=== PATIENT | male | born 1945 | race Caucasian/White ===

== ENCOUNTER 2019-12-28 18:15 | Inpatient (IN) | payer MEDICAID, SELFPAY ==
[2019-12-28] VITALS (14 sets, daily range): BP systolic 113–131; BP diastolic 65–75; PULSE 75–94; RESP 10–25; TEMP 35.9–36.9; O2SAT 90–97; BMI 22.1
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
--- NOTE | 2019-12-28 21:04 | CTR_ITS ---
PROCEDURE INFORMATION: Exam: CT Abdomen And Pelvis Without Contrast Exam date and time: 12/28/2019 1:00 AM Age: 74 years old Clinical indication: Abdominal pain; Prior surgery; Surgery type: Port a cath; Patient HX: C/O lower abd pain; Additional info: Lower abdominal pain TECHNIQUE: Imaging protocol: Computed tomography of the abdomen and pelvis without contrast. Radiation optimization: All CT scans at this facility use at least one of these dose optimization techniques: automated exposure control; mA and/or kV adjustment per patient size (includes targeted exams where dose is matched to clinical indication); or iterative reconstruction. COMPARISON: No relevant prior studies available. RADIATION DOSE METRICS: Total DLP (mGy-cm): 792.35 FINDINGS: Lungs: There is subsegmental atelectasis in the lung bases. Heart: There is mild cardiac enlargement. Mediastinal space: There is a small sliding-type hiatal hernia. Liver: The liver is normal. Gallbladder and bile ducts: The gallbladder is normal. There is no biliary dilation. Pancreas: There is mild atrophy of the pancreas. Spleen: The spleen is mildly enlarged. Adrenals: The adrenal glands are unremarkable. Kidneys and ureters: Bilateral renal vascular calcification. No intrarenal stones. No hydronephrosis or ureteral dilation. Stomach and bowel: The stomach is unremarkable. The small bowel is nondilated. There is moderate distal descending and sigmoid colonic diverticulosis without evidence of diverticulitis. Appendix: The appendix is normal. Intraperitoneal space: There is no free air or significant intraperitoneal free fluid. Vasculature: There is severe aortic atherosclerotic disease. Lymph nodes: There is no lymphadenopathy in the retroperitoneum, mesentery, pelvis or inguinal regions. Urinary bladder: The urinary bladder is distended and thin walled. Reproductive: The prostate and seminal vesicles are unremarkable. Bones/joints: There is moderate degenerative disease in the lumbar spine. The pelvis and hips are intact. Soft tissues: The abdominal wall is intact. CT/CT abdomen pelvis wo con [id number] IMPRESSION: 1. No acute findings. 2. Incidental findings above. Radiation Dose CTDIVOL = (mGy): DLP = 792.35 (mGy-cm)
[2019-12-28] MEDS: pantoprazole 40 mg SDV IVP (21:23)
[2019-12-28] MEDS: sodium chloride 0.9% (100 ml) 100 ML 10 ML (21:25)
--- NOTE | 2019-12-28 21:42 | PC.PHAR ---
Pharmacokinetic dosing service Date: 12/28/19 Time: 2141 Objective: Patient: Jhon Parson Floor: ICU-5 Age: 74 yo Serum creatinine: 1.82 mg/dL Height: 65.0 Inches Weight (kg): 60.509 Diagnosis: Relevant medical/social history: Cultures and sensitivities: Other labs: Assessment: IBW (kg): 61.50 Dosing wt(kg): 60.509 Estimated Creatinine clearance (ml/min): 31.4 CRCL method: Cockcroft and Gault using ibw(default). Drug selected: Vancomycin Loading dose (mg): 0 Vd (liters): 54.5 (factor used: 0.9 L/kg) Pablito (hr-1): 0.030 Half life (hrs): 23.10 Recommended dose: 1000 mg Interval: 24 hrs Infusion time (hrs): 1.5 Predicted peak (mcg/mL): 35.0 Predicted trough (mcg/mL): 17.82 Total body weight is being used for vancomycin dosing. Renal function is stable [ ] /unstable [ ] Recommendations: Give Vancomycin 1000 mg q 24 hrs with an expected Cpeak of 35.0 mcg/ml and an expected Ctrough of 17.82 mcg/ml Renal dosing of other antibiotics (review renal dosing of other medications and list guidelines here): Thank you for the consult, will continue to follow. Signature: Susannah Chandra [facility]
[2019-12-28] MEDS: vancomycin 1,000 MG in sodium chloride 0.9% 250 ML 250 MG IV (22:42)
[2019-12-29] VITALS (24 sets, daily range): BP systolic 104–138; BP diastolic 61–89; PULSE 86–108; RESP 2–27; TEMP 36.9–37; O2SAT 84–100
[2019-12-29 01:08] LABS: Add Urine Microscopic? YES; Bilirubin Urine Neg (Negative); Blood Urine 3+ (Negative); Glucose Urine UA Norm (Normal); Ketones Urine Negative (Negative); Leukocyte Esterase Urine Negative (Negative); Nitrate Urine Negative (Negative); Protein Urine 1+ (Negative); Urine Appearance Clear (CLEAR); Urine Color Yellow (Yellow); Urobilinogen Urine Norm (Negative); pH Urine 5 (5-7)
[2019-12-29 01:10] LABS: Add Urine Culture? Yes; Amorphous Sediment Urine 1+ /hpf; Bacteria Urine 1+ /hpf; Hyaline Casts Urine 0-4 /lpf; Mucus Urine 1+ /hpf; Squamous Epithelial Cell Urine 0-4 /hpf (0-5); WBC Urine 0-4 /hpf (0-5)
[2019-12-29 04:48] LABS: Basophils % 0.6 %; Hematocrit 22.2 % (42.0-52.0); Hemoglobin 6.9 g/dL (11.7-16.6); Lymphocytes # 0.8 10^3/uL (0.8-4.8); Lymphocytes % 46.9 %; Mean Corpuscular HGB Conc 31.1 g/dL (30.0-36.0); Mean Corpuscular Hemoglobin 29.7 pg (28.0-34.0); Mean Corpuscular Volume 95.7 fL (80-94); Mean Platelet Volume 10.8 fL (7.4-10.4); Monocytes # 0.1 10^3/uL (0.2-0.9); Monocytes % 6.8 %; Nucleated Red Blood Cells % 0 %; Platelet Count 52 10^3/cmm (130-400); Red Blood Count 2.32 10^6/uL (4.1-5.3); Red Cell Distribution Width 17.2 % (12.1-15.1); White Blood Count 1.6 10^3/uL (4.0-10.0)
[2019-12-29 05:11] LABS: Alanine Aminotransferase 40 U/L (0-41); Albumin Level 2.9 g/dL (3.5-5.2); Alkaline Phosphatase 65 IU/L (40-130); Anion Gap 14.2 (5-19); Aspartate Amino Transferase 73 U/L (0-40); Blood Urea Nitrogen 27 mg/dL (8-23); Calcium 8.6 mg/dL (8.5-10.5); Carbon Dioxide 22 mmol/L (22-29); Chloride 100 mmol/L (98-107); Globulin 3.1 g/dL (1.3-4.6); Glucose 116 mg/dL (65-115); Osmolality Calculated 280 mOsm/kg (285-295); Potassium 4.2 mmol/L (3.5-5.1); Sodium 132 mmol/L (136-145); Total Bilirubin 0.4 mg/dL (0.15-1.2)
[2019-12-29 07:49] LABS: Neutrophils % 44.7 %
[2019-12-29 07:52] LABS: Neutrophils # 0.74 10^3/uL (1.8-7.7); Slide Review Slide Review Perform
--- NOTE | 2019-12-29 17:53 | P.PN_ITS ---
Subjective Subjective: Interval history: Reports that today he is feeling well. Denies any shortness of breath, chest pain. Says that he is not coughing. No trouble or pain swallowing. No abdominal pain, nausea vomiting or diarrhea. No rash. Denies any headache or other discomfort. Has been eating well. Vitals/I&O/Wt Last Vital Signs Temp 98.4 F 12/29/19 08:40 Pulse 88 12/29/19 16:00 Resp 7 L 12/29/19 16:00 BP 108/61 12/29/19 16:00 Pulse Ox 100 12/29/19 15:00 12/29/19 12/29/19 12/29/19 06:59 14:59 22:59 Intake Total 350 / 1574 350 / 350 250 / 600 Output Total 600 / 600 700 / 700 Balance -250 / 974 -350 / -350 250 / -100 Weight last 48 hrs Weight 60.509 kg Physical Exam Const: COMMON NORMALS: no acute distress, patient oriented x3 and alert GENERAL APPEARANCE: cooperative and comfortable ORIENTATION/CONSCIOUSNESS: Yes awake HENMT: COMMON NORMALS: oropharynx normal (No thrush) Neck/C-Spine: COMMON NORMALS: no JVD Chest: OTHER: Right chest Port-A-Cath Resp: COMMON NORMALS: normal respiratory effort and clear to auscultation bilaterally AUSCULTATION: clear to auscultation bilaterally Cardio: COMMON NORMALS: no JVD, regular rhythm, S1 normal heart sound present, S2 normal heart sound present and No murmurs present (Cardio) RHYTHM: regular rhythm HEART SOUNDS: S1 normal heart sound present and S2 normal heart sound present GI: COMMON NORMALS: Normal to inspection, nondistended, normoactive bowel sounds present, Soft to palpation and non-tender PALPATION: Yes Soft to palpation Extremity: COMMON NORMALS: no joint enlargement and no pedal edema Neuro: COMMON NORMALS: patient oriented x3 and moves all extremities SENSORIUM/ORIENTATION: Yes alert Skin: COMMON NORMALS: no rashes or lesions noted GENERAL SKIN EXAM: no rashes or lesions noted, no erythema, no petechiae and no purpura Data : 12/29/19 03:44 12/29/19 03:44 Micro: Microbiology 12/28/19 01:05 Gram Stain - Final Sputum - Expectorated Sputum 12/29/19 00:37 Legionella Urinary Antigen - Final Urine,Voided Bacterial Antigens - Final A&P Assessment and plan (1) Neutropenic fever: He is doing well. Fever resolved. ANC appears with some improvement up to 740. Continue empiric antibiotics at this time. Will need to follow-up cultures from [facility]. Continue to monitor counts. Blood cultures were collected over at [facility]. There he was also swabbed for influenza rapid test which was negative. Rapid strep was negative. Also swabbed for coronavirus which is pending. Status: Acute (2) Pancytopenia: Hemoglobin down to 6.9. Will transfuse 1 unit PRBC. Responded well to transfusion. Platelets 52,000 this morning. Continue to monitor counts. On presentation severe thrombocytopenia, platelet level 5000. Requested for 2 units of leukoreduced irradiated single donor platelets to be transfused tonight. PPI. Leukopenia with WBC count 1.6, absolute neutrophil count 670. Had Neulasta on the . Status: Acute (3) Lung cancer: Following up with oncologist in [place] Dr. Garces. Gets chemotherapy every 3 weeks, immunotherapy every 2 weeks. Most recently immunotherapy on 12/24, chemotherapy on 12/18. Received Neulasta after chemo. Also received Decadron. Requested records. Status: Acute (4) Pneumonia: Noted right lower lobe pneumonia. No noted history of aspiration. Maintain aspiration precautions. At this time empiric coverage with Primaxin, vancomycin. Rapid flu was negative. Coronavirus swab was sent at [facility]. Blood cultures were collected. Will need to follow-up on these. Negative urine bacterial antigens, Legionella. Sputum culture if able to provide. We will maintain in isolation at this time. Discussed with daughter extensively risks of exposure will change her, although given the extent a lot of time together, and likely have been exposed to each other, she would like to assume the risk and visit with appropriate precautions with PPE, especially as above with concerns regarding his mental wellbeing. Status: Acute (5) Lower abdominal pain: On and off lower abdominal pain. He denies any diarrhea. Denies any hematochezia or melena. Mild microscopic hematuria on UA. CT abdomen pelvis without acute findings. U nremarkable prostate, although urinary bladder is distended and thin-walled, noted incidentally. Perhaps intermittent urinary retention may be responsible for some of his lower abdominal discomfort. Status: Acute (6) Renal failure: DARRIN vs CKD. Improving. Cr 1.82 at [facility]. Baseline is unknown. Renally dose antibiotics. Avoid any nephrotoxins. Status: Acute (7) Person under investigation for COVID-19: Status: Acute Additional A&P Information HTN Dementia Noted among current conditions. Reconcile medications. Attestations Medical Necessity Statement*: Continue admission for assessment and management of neutropenic fever, pneumonia in the setting of lung cancer, pancytopenia, acute kidney injury, under investigation for COVID-19. Coding Level of Care Code Acute Sheet Heater Helper for [facility] Fwd Diagnoses Neutropenic fever D70.9; R50.81 Pancytopenia D61.818 Lung cancer C34.90 Pneumonia J18.9 Lower abdominal pain R10.30 Renal failure N19 Person under investigation for COVID-19 Z20.828
[2019-12-29] MEDS: sodium chloride 0.9% (100 ml) 100 ML (20:13)
[2019-12-29] MEDS: pantoprazole 40 mg SDV IVP (20:26)
[2019-12-29] MEDS: donepezil 5 MG Tablet PO (20:26)
[2019-12-29] MEDS: vancomycin 1,000 MG in sodium chloride 0.9% 250 ML 250 MG IV (22:09)
[2019-12-30] VITALS (15 sets, daily range): BP systolic 130–160; BP diastolic 77–91; PULSE 82–105; RESP 15–28; TEMP 36.4–36.9; O2SAT 95–99
[2019-12-30 04:49] LABS: Hematocrit 24.9 % (42.0-52.0); Hemoglobin 8.2 g/dL (11.7-16.6); Lymphocytes # 1.1 10^3/uL (0.8-4.8); Mean Corpuscular HGB Conc 32.9 g/dL (30.0-36.0); Mean Corpuscular Hemoglobin 30.7 pg (28.0-34.0); Mean Corpuscular Volume 93.3 fL (80-94); Monocytes # 0.2 10^3/uL (0.2-0.9); Monocytes % 6.4 %; Neutrophils # 1.09 10^3/uL (1.8-7.7); Neutrophils % 46.2 %; Nucleated Red Blood Cells % 0 %; Platelet Count 32 10^3/cmm (130-400); Red Blood Count 2.67 10^6/uL (4.1-5.3); Red Cell Distribution Width 17.2 % (12.1-15.1); White Blood Count 2.4 10^3/uL (4.0-10.0)
[2019-12-30 05:07] LABS: Alanine Aminotransferase 34 U/L (0-41); Albumin Level 2.9 g/dL (3.5-5.2); Alkaline Phosphatase 70 IU/L (40-130); Anion Gap 12.1 (5-19); Aspartate Amino Transferase 62 U/L (0-40); Blood Urea Nitrogen 26 mg/dL (8-23); Calcium 8.6 mg/dL (8.5-10.5); Carbon Dioxide 25 mmol/L (22-29); Chloride 103 mmol/L (98-107); Globulin 3.1 g/dL (1.3-4.6); Glucose 101 mg/dL (65-115); Osmolality Calculated 287 mOsm/kg (285-295); Potassium 4.1 mmol/L (3.5-5.1); Sodium 136 mmol/L (136-145); Total Bilirubin 0.6 mg/dL (0.15-1.2)
[2019-12-30] MEDS: folic acid 1 mg Tablet PO (09:16)
--- NOTE | 2019-12-30 10:17 | P.PN_ITS ---
Subjective Subjective: Interval history: He says he is feeling well. No complaints. Asks when he will be able to go home as he has to do some bluish walking and use a saw. Discussed with him regarding low platelets and bleeding risk. Vitals/I&O/Wt Last Vital Signs Temp 98.4 F 12/30/19 04:00 Pulse 98 12/30/19 09:00 Resp 20 H 12/30/19 09:00 BP 153/91 12/30/19 09:00 Pulse Ox 98 12/30/19 09:00 12/29/19 12/30/19 12/30/19 22:59 06:59 14:59 Intake Total 1150 / 1500 300 / 1800 200 / 200 Output Total 250 / 950 850 / 1800 Balance 900 / 550 -550 / 0 200 / 200 Weight last 48 hrs Weight 60.509 kg Physical Exam Const: COMMON NORMALS: no acute distress, patient oriented x3 and alert GENERAL APPEARANCE: cooperative and comfortable ORIENTATION/CONSCIOUSNESS: Yes awake HENMT: COMMON NORMALS: oropharynx normal (No thrush) Neck/C-Spine: COMMON NORMALS: no JVD Chest: OTHER: Right chest Port-A-Cath Resp: COMMON NORMALS: normal respiratory effort and clear to auscultation bilaterally AUSCULTATION: clear to auscultation bilaterally Cardio: COMMON NORMALS: no JVD, regular rhythm, S1 normal heart sound present, S2 normal heart sound present and No murmurs present (Cardio) RHYTHM: regular rhythm HEART SOUNDS: S1 normal heart sound present and S2 normal heart sound present GI: COMMON NORMALS: Normal to inspection, nondistended, normoactive bowel sounds present, Soft to palpation and non-tender PALPATION: Yes Soft to palpation Extremity: COMMON NORMALS: no joint enlargement and no pedal edema Neuro: COMMON NORMALS: patient oriented x3 and moves all extremities SENSORIUM/ORIENTATION: Yes alert Skin: COMMON NORMALS: no rashes or lesions noted GENERAL SKIN EXAM: no rashes or lesions noted, no erythema, no petechiae and no purpura Data : 12/30/19 04:18 12/30/19 04:18 Micro: Microbiology 12/28/19 01:05 Gram Stain - Final Sputum - Expectorated Sputum 12/29/19 00:37 Legionella Urinary Antigen - Final Urine,Voided Bacterial Antigens - Final A&P Assessment and plan (1) Pancytopenia: Thrombocytopenia again today, platelets 32,000. Will order additional 1 unit of platelets. Responded well to PRBC transfusion. ANC is improving and is up to 1000 today. Hemoglobin down to 6.9. Will transfuse 1 unit PRBC. Continue to monitor counts. On presentation severe thrombocytopenia, platelet level 5000. PPI. Had Neulasta on the . Status: Acute (2) Neutropenic fever: Fever resolved. No respiratory complaints. We will switch antibiotics over to Levaquin. Confirmed results of COVID-19 testing at [facility] which is negative. ANC is up to 1090. May discontinue isolation. Transfer to medical floor. Will need to follow-up blood cultures from [facility]. Continue to monitor counts. There he was also swabbed for influenza rapid test which was negative. Rapid strep was negative. Status: Acute (3) Lung cancer: Following up with oncologist in [place] Dr. Garces. Gets chemotherapy every 3 weeks, immunotherapy every 2 weeks. Most recently immunotherapy on 12/24, chemotherapy on 12/18. Received Neulasta after chemo. Also received Decadron. Requested records. Status: Acute (4) Pneumonia: Neutropenia improving. Switch antibiotics as above. On minimal oxygen. Rapid flu was negative. Coronavirus at [facility] returned negative. Blood cultures were collected. Will need to follow-up on these. Negative urine bacterial antigens, Legionella. Sputum culture if able to provide. DC isolation at this time. Status: Acute (5) Lower abdominal pain: On and off lower abdominal pain. He denies any diarrhea. Denies any hematochezia or melena. Mild microscopic hematuria on UA. CT abdomen pelvis without acute findings. Unremarkable prostate, although urinary bladder is distended and thin-walled, noted incidentally. Perhaps intermittent urinary retention may be responsible for some of his lower abdominal discomfort. Hypertensive. Start Flomax. Status: Acute (6) Renal failure: DARRIN improving. Cr 1.82 at [facility]. Baseline is unknown. Avoid any nephrotoxins. Status: Acute (7) Person under investigation for COVID-19: Negative. Status: Acute Additional A&P Information HTN Dementia Noted among current conditions. Reconcile medications. Attestations Medical Necessity Statement*: Continue admission for assessment management of thrombocytopenia/pancytopenia, pneumonia. Coding Level of Care Code Acute Pickling Solution Maker for Chg Fwd Diagnoses Pancytopenia D61.818 Neutropenic fever D70.9; R50.81 Lung cancer C34.90 Pneumonia J18.9 Lower abdominal pain R10.30 Renal failure N19 Person under investigation for COVID-19 Z20.828
--- NOTE | 2019-12-30 12:00 | PC.NURSE ---
Patient transferred and admitted to Med/surg from ICU, sitting up in chair, denies pain or shortness of breath, side rails padded for aspiration precautions, SCD's placed on bed, discussed plan of care and denies further questions or concerns.
[2019-12-30] MEDS: tamsulosin 0.4 mg Capsule PO (12:11)
[2019-12-30] MEDS: levoFLOXacin 750 mg Tablet PO (12:11)
--- NOTE | 2019-12-30 13:12 | PC.NURSE ---
daughter called and informed transfered to room 263
[2019-12-30] MEDS: cloNIDine 0.1 mg Tablet PO (17:17)
[2019-12-30] MEDS: donepezil 5 MG Tablet PO (20:36)
[2019-12-30] MEDS: pantoprazole 40 mg SDV IVP (20:38)
[2019-12-31] VITALS (7 sets, daily range): BP systolic 115–145; BP diastolic 68–77; PULSE 81–88; RESP 16–18; TEMP 36.5–36.9; O2SAT 88–95
--- NOTE | 2019-12-31 00:55 | PC.PHAR ---
Renal Dosing for Levaquin 750mg changed to q48h due to crcl <50
[2019-12-31 05:50] LABS: Basophils % 0.3 %; Hematocrit 24.8 % (42.0-52.0); Hemoglobin 7.9 g/dL (11.7-16.6); Lymphocytes # 1.2 10^3/uL (0.8-4.8); Lymphocytes % 40.6 %; Mean Corpuscular HGB Conc 31.9 g/dL (30.0-36.0); Mean Corpuscular Hemoglobin 30.2 pg (28.0-34.0); Mean Corpuscular Volume 94.7 fL (80-94); Mean Platelet Volume 11.7 fL (7.4-10.4); Monocytes # 0.2 10^3/uL (0.2-0.9); Monocytes % 6.6 %; Neutrophils # 1.57 10^3/uL (1.8-7.7); Neutrophils % 51.8 %; Nucleated Red Blood Cells % 0 %; Platelet Count 48 10^3/cmm (130-400); Red Blood Count 2.62 10^6/uL (4.1-5.3); Red Cell Distribution Width 17.4 % (12.1-15.1)
[2019-12-31 06:19] LABS: Alanine Aminotransferase 33 U/L (0-41); Albumin Level 2.9 g/dL (3.5-5.2); Alkaline Phosphatase 68 IU/L (40-130); Anion Gap 12.2 (5-19); Aspartate Amino Transferase 60 U/L (0-40); Blood Urea Nitrogen 26 mg/dL (8-23); Calcium 8.9 mg/dL (8.5-10.5); Carbon Dioxide 26 mmol/L (22-29); Chloride 100 mmol/L (98-107); Globulin 3.1 g/dL (1.3-4.6); Glucose 101 mg/dL (65-115); Osmolality Calculated 283 mOsm/kg (285-295); Potassium 4.2 mmol/L (3.5-5.1); Sodium 134 mmol/L (136-145); Total Bilirubin 0.6 mg/dL (0.15-1.2)
--- NOTE | 2019-12-31 06:42 | PC.NURSE ---
Shift summary Patient slept good through the night. Patient has hx of dementia and seems confused at times when he is awake. He is on 2L nasal canula. His oxygen does drop down in the 80's if he takes it off.
[2019-12-31] MEDS: folic acid 1 mg Tablet PO (09:11)
[2019-12-31] MEDS: tamsulosin 0.4 mg Capsule PO (09:11)
[2019-12-31] MEDS: cloNIDine 0.1 mg Tablet PO (09:11)
--- NOTE | 2019-12-31 13:35 | P.DS_ITS ---
Discharge Providers Date of Admission: 12/28/19 18:15 Date of Discharge: December 31, 2019 Attending Provider at Admission: Willian Dooley Attending Provider at Discharge: Willian Dooley Primary Care Provider: ALAINA Solano Diagnoses at Discharge Discharge Diagnosis (1) Pancytopenia: Status: Acute (2) Neutropenic fever: Status: Acute (3) Lung cancer: Status: Acute (4) Pneumonia: Status: Acute (5) Lower abdominal pain: Status: Acute Problem details: Thin-walled distended urinary bladder. No UTI. Started on Flomax. Please follow-up. (6) Renal failure: Status: Acute (7) Person under investigation for COVID-19: Status: Acute Problem details: Negative Reason for Visit Reason for Visit: lung cancer/pneumonia Hospital Course Discharge Summary: Very pleasant 74-year-old gentleman who lives independently, although with history of dementia, frequently checked up on by his daughter, with lung cancer undergoing currently chemotherapy and immunotherapy with Dr. Briseno in [place], no recently chemotherapy on 12/18, at the same time received Neulasta, Decadron, prior to chemotherapy required 1 unit PRBC transfusion, most recent immunotherapy 12/24, was transferred here from [facility] where he presented with generalized weakness some cough, will screen for rapid flu, rapid strep, as well as tested for COVID-19 after finding of right lower lobe pneumonia, fever 101 Fahrenheit in the setting of pancytopenia with absolute neutrophil count of 670, platelet count of 5000. Blood cultures were drawn at [facility]. Received azithromycin there. CT of the head did not show any bleeding. On transfer here started on Primaxin. Received 2 units platelet transfusion, with improvement in platelets up to 52,000, subsequently again down to 32,000 on 12/29, received additional 1 unit platelets, as well as 1 unit PRBC transfusion for hemoglobin 6.9. Responded well. Today platelets up to 48,000. Hemoglobin at 7.9. No bleeding. Also reported some intermittent lower abdominal pain, so was additionally assessed by CT abdomen pelvis which showed no acute findings, but somewhat distended, thin-walled urinary bladder. No gross was found on urine culture, and has had no other urinary symptoms. Started on Flomax for BPH, please follow-up on this, refer to urology if necessary. On presentation at [facility] noted to have acute kidney injury with creatinine of 1.82. This gradually improved, with creatinine down to 1.2 today. Please follow-up renal function. Lisinopril is held for now until renal function stabilizes. Amlodipine is discontinued after initiation of Flomax. Blood pressure close to goal currently. Please reassess. He is otherwise doing well. Reports some cough, however, he is not short of breath, requiring minimal oxygen on 2 L nasal cannula. This is ordered for him. COVID- 19 at [facility] was negative. Blood cultures at [facility] so far showing no growth at 48 hours. Final cultures need to be followed up. Please follow-up pneumonia to resolution and discuss follow-up imaging. His condition and progress were discussed with his oncologist Dr. Briseno. At this time no additional recommendations and he will see him in office in follow-up on his c ondition blood counts on 01/01 at 9:15 in the morning. His condition and plan were discussed with his daughter. She would like him to stay with her for the next week until it is clear that he is recovered. Physical Exam Const: COMMON NORMALS: no acute distress and patient oriented x3 HENMT: COMMON NORMALS: oropharynx normal Neck/C-Spine: COMMON NORMALS: no JVD Resp: COMMON NORMALS: normal respiratory effort and clear to auscultation bilaterally AUSCULTATION: clear to auscultation bilaterally Cardio: COMMON NORMALS: no JVD, regular rhythm, S1 normal heart sound present, S2 normal heart sound present and No murmurs present (Cardio) RHYTHM: regular rhythm HEART SOUNDS: S1 normal heart sound present and S2 normal heart sound present GI: COMMON NORMALS: Normal to inspection, nondistended, normoactive bowel sounds present, Soft to palpation and non-tender PALPATION: Yes Soft to palp ation Extremity: COMMON NORMALS: no joint enlargement and no pedal edema Neuro: COMMON NORMALS: patient oriented x3 and moves all extremities Skin: COMMON NORMALS: no rashes or lesions noted GENERAL SKIN EXAM: no rashes or lesions noted Discharge Data Data Completed and Pending: Completed Studies During Hospitalization Category Date Time Status CT abdomen pelvis wo con [id number] Rout ine Cat Scan 12/28/19 21:04 Completed Pending at discharge Category Date Time Status Complete Crossmat ch Routine Lab 12/28/19 20:30 Results Irradiated Leuko Red RBC Routine Lab 12/29/19 17:56 Results Platelets Leukore duced Irradia Rout ine Lab 12/30/19 08:12 Results Retype for Patiet s ABO/Rh Routine Lab 12/28/19 20:30 Results Sputum Culture an d Gram Stain Routi ne Lab 12/28/19 01:05 Results Labs from last 24 hours 12/31/19 12/31/19 12/28/19 05:05 05:05 19:25 WBC 3.0 L RBC 2.62 L Hgb 7.9 L Hct 24.8 L MCV 94.7 H MCH 30.2 MCHC 31.9 RDW 17.4 H Plt Count 48 L MPV 11.7 H Neut % (Auto) 51.8 Lymph % (Auto) 40.6 [place] % (Auto) 6.6 Eos % (Auto) 0.0 Baso % (Auto) 0.3 Neut # (Auto) 1.57 L Lymph # (Auto) 1.2 [place] # (Auto) 0.2 Eos # (Auto) 0.0 Baso # (Auto) 0.0 Nucleated RBC % (a uto) 0 Nucleated RBCs # 0.0 Sodium 134 L Potassium 4.2 Chloride 100 Carbon Dioxide 26 Anion Gap 12.2 BUN 26 H Creatinine 1.2 GFR Calculation Not Reportable Glucose 101 Calculated Osmolal ity 283 L Calcium 8.9 Total Bilirubin 0.6 AST 60 H ALT 33 Alkaline Phosphata se 68 Total Protein 6.0 L Albumin 2.9 L Globulin 3.1 Blood Type O Positive Rho(D) Type Positive Antibody Screen Negative Crossmatch See Detail Vitals: Last Vital Signs Temp 97.7 F 12/31/19 11:40 Pulse 84 12/31/19 11:40 Resp 18 12/31/19 11:40 BP 126/68 12/31/19 11:40 Pulse Ox 88 L 12/31/19 13:23 Discharge Plan Discharge Patient Disposition: Home Condition: Stable Prescriptions: New tamsulosin 0.4 mg Capsule 0.4 mg PO DAILY Qty: 30 RF: 0 levofloxacin 750 mg Tablet 750 mg PO Q48H Qty: 3 RF: 0 pantoprazole 40 mg tablet,delayed release (DR/EC) 40 mg PO DAILY Qty: 30 RF: 0 Continued clonidine HCl 0.1 mg Tablet 0.1 mg PO BID RF: 0 Aricept 5 mg Tablet 5 mg PO BEDTIME RF: 0 ondansetron 8 mg Tablet,Disintegrating 8 mg PO Q8H PRN (Reason: Nausea) RF: 0 cyanocobalamin (vitamin B-12) 1,000 mcg/mL Solution 1,000 mcg IM DIRECTED RF: 0 Colace 100 mg Capsule 100 mg PO BID RF: 0 folic acid 1 mg Tablet 1 mg PO DAILY RF: 0 Held lisinopril 40 mg Tablet 40 mg PO DAILY RF: 0 Hold Instructions: Resume on 01/14/20. Discontinued doxycycline hyclate [Vibramycin] 100 mg Capsule 100 mg PO BID RF: 0 amlodipine 5 mg Tablet 5 mg PO DAILY RF: 0 Discharge Orders: Discharge Order (Routine); Ordered 12/31/19 Ordered By: Willian Dooley Other Ambulatory Orders: DME: Oxygen (Order) Location: None Selected Ordered By: Willian Dooley Referrals: Cayden Briseno [Other] - 01/02/20 9:15 am (Follow up on January 01 at 09:15am) Alessia Montgomery FNP [Primary Care Provider] - 01/04/20 1:30 pm (Follow up with Alessia Montgomery TuesdayJanuary 03 at 01:30pm) Discharge Diet: Usual diet Discharge Activity: Increase activity as tolerated and Limit activity as instructed Patient Instructions: Levofloxacin (By mouth), Tamsulosin (By mouth), Pantoprazole (By mouth), Viral Pneumonia (DC), Lung Cancer (DC) Activity Restrictions/Additional Instructions: Avoid any activities that may lead to injury as you are at increased risk of bleeding currently due to low platelet levels. Please restrict activity/exercise caution until your blood count levels are rising back to normal. Please follow-up with your cancer doctor on Tuesday at 915 in the morning, and follow-up blood counts to be drawn in the office. If you experience any worsening shortness of breath, any high fevers, any chest pain, fainting, any bleeding, rash or severe diarrhea, or any other concerning symptoms, please seek medical attention without delay. Please complete antibiotic course for pneumonia. Discussed with your doctor regarding obtaining follow-up x-ray after you recover. Please discuss with your primary doctor regarding finding of dilation with thin wall of urinary bladder. You were started on a prostate medication. If you notice any dizziness when standing up, or any blood pressure decrease please be advised this medication can affect the blood pressure. If noticing any of the symptoms please tell your doctor. Please discuss with your doctor regarding acute kidney injury which is seen when you were first evaluated. This has improved, but have your primary doctor follow-up your kidney function. Please avoid any NSAIDs like ibuprofen, Aleve, etc. Your lisinopril for now is held so it does not contribute to kidney injury further until your kidney function recovers. Please follow-up with your primary doctor about when it is safe to resume lisinopril. Discharge Attestations Time Spent in Discharge Care*: greater than 30 min Quality Metrics Clinical Quality Measures During this hospital stay, did patient experience: None Coding Level of Care Code Acute Medical Staff Credentialing Coordinator for Anuja Ahmadi Diagnoses Pancytopenia D61.818 Neutropenic fever D70.9; R50.81 Lung cancer C34.90 Pneumonia J18.9 Lower abdominal pain R10.30 Renal failure N19 Person under investigation for COVID-19 Z20.828
--- NOTE | 2019-12-31 16:35 | PC.NURSE ---
DISCHARGE OXYGEN DELIVERED TO PATIENT BEDSIDE. DISCHARGE DISCUSSED WITH PATIENT AND HIS DAUGHTER. NO QUESTIONS AT TIME OF DISCHARGE, HOSPITAL PHONE NUMBER PROVIDED IN CASE QUESTIONS DO ARISE.
== END 2019-12-31 16:39 | disposition home or self-care (01) | DRG 808 ==
LOC: ICU 19:35 → MEDSURG 12-30 12:25
PROVIDERS: Admitting Provider Internal Medicine; PCP Nurse Practitioner Family; Visit Provider Internal Medicine
DX: D61.810 Antineoplastic chemotherapy induced pancytopenia (principal); J18.9 Pneumonia, unspecified organism; C34.90 Malignant neoplasm of unspecified part of unspecified bronchus or lung; N17.9 Acute kidney failure, unspecified; Z20.828 Contact with and (suspected) exposure to other viral communicable diseases; D70.9 Neutropenia, unspecified; I10 Essential (primary) hypertension; F03.90 Unspecified dementia, unspecified severity, without behavioral disturbance, psychotic disturbance, mood disturbance, and anxiety; Z87.891 Personal history of nicotine dependence
CPT/HCPCS: 12345; 36415; 36430; 36591; 74176; 80053; 81001; 85025; 86403; 86850; 86900; 86920; 87070; 87086; 87205; 87449; 96375; C9113; J0743; J3370; J7050; P9037; P9040